=== PATIENT | female | born 1990 | race African-American/Black ===

== ENCOUNTER 2017-09-21 23:53 | Emergency (ER) | payer SELFPAY ==
[~2017-09-21] VITALS: Ht 167.6 cm; Wt 55.3 kg
[2017-09-22 00:03] VITALS: BP 136/82
== END 2017-09-22 01:21 | disposition home or self-care (01) ==
LOC: ER 23:56
DX: S67.191A Crushing injury of left index finger, initial encounter (principal); W23.0XXA Caught, crushed, jammed, or pinched between moving objects, initial encounter; Y93.89 Activity, other specified; Y92.89 Other specified places as the place of occurrence of the external cause; Y99.8 Other external cause status
CPT/HCPCS: 73130; 99284; A4606; A6402; Z7610